=== PATIENT | male | born 1970 | race Caucasian/White ===

== ENCOUNTER → 2021-05-21 | Outpatient (CLI) | payer OTHER | LOC: M.ULTRA 12:54 | DX: M79.89 Other specified soft tissue disorders (principal) ==

== ENCOUNTER → 2021-05-27 | Outpatient (CLI) | payer OTHER | LOC: M.MRI 07:13 | PROVIDERS: ATTEND Emergency Medicine | DX: M79.89 Other specified soft tissue disorders (principal); R93.89 Abnormal findings on diagnostic imaging of other specified body structures; R19.09 Other intra-abdominal and pelvic swelling, mass and lump ==